=== PATIENT | female | born 1970 | race Caucasian/White ===

== ENCOUNTER 2020-08-03 11:23 | Emergency (ER) | payer MEDICARE, OTHER ==
[~2020-08-03 11:23] MED LIST: AMBIEN10 MG PO; AZITHROMYCIN500 MG PO; BENZONATATE200 MG PO; COMBIVENT RESPIM4 GM INH; CYCLOBENZAPRINE10 MG PO; CYMBALTA60 MG PO; DALIRESP500 MCG PO; DOXYCYCLINE HY100 MG PO; ELAVIL 50 MG TA50 MG PO; ESTRACE0.5 MG PO; FLOMAX0.4 MG PO; IPRAT-ALBUT 0.5-3 ML INH; KLONOPIN0.5 MG PO; MIRALAX510 GM PO; NAPROSYN250 MG PO; PERCOCET 5-3251 EACH PO; PERCOCET 7.5-31 EACH PO; PREDNISONE20 MG PO; TRELEGY ELLIPT1 EACH INH; TYLENOL W/CODEIN1 EA PO; TYLENOL WITH C1 EACH PO; XELJANZ5 MG PO; ZOFRAN ODT 4 MG4 MG SL
[2020-08-03 12:35] LABS: HEMOGLOBIN 11.7 gm/dl (12.3-15.3); RED BLOOD COUNT 4.17 M/UL (4.00-5.10); WHITE BLOOD COUNT 13.4 K/UL (4.5-11.0)
== END 2020-08-03 17:05 | disposition home or self-care (01) ==
LOC: ER1 11:23
PROVIDERS: Physician Assistant
DX: J44.9 Chronic obstructive pulmonary disease, unspecified (principal); F31.9 Bipolar disorder, unspecified; R00.0 Tachycardia, unspecified; F17.290 Nicotine dependence, other tobacco product, uncomplicated; Z88.8 Allergy status to other drugs, medicaments and biological substances; Z79.52 Long term (current) use of systemic steroids; Z20.828 Contact with and (suspected) exposure to other viral communicable diseases
CPT/HCPCS: 71045; 80053; 80307; 81001; 85025; 85379; 87077; 87086; 87186; 94664; 96374; 99285; J2930; U0002

== ENCOUNTER → 2020-08-04 | Outpatient (CLI) | payer MEDICARE, OTHER | LOC: CT 09:30 | DX: J44.9 Chronic obstructive pulmonary disease, unspecified (principal); R00.0 Tachycardia, unspecified; J98.4 Other disorders of lung | CPT/HCPCS: Q9967 ==

== ENCOUNTER → 2020-11-02 | Outpatient (CLI) | payer MEDICARE, OTHER | LOC: KOH-I 14:01 | DX: N20.0 Calculus of kidney (principal); N13.30 Unspecified hydronephrosis | CPT/HCPCS: 74176 ==

== ENCOUNTER 2021-02-03 08:43 | Emergency (ER) | payer MEDICARE, OTHER | END 2021-02-03 12:15 | disposition home or self-care (01) | LOC: ER1 08:43 | DX: M06.9 Rheumatoid arthritis, unspecified (principal); Z79.899 Other long term (current) drug therapy | CPT/HCPCS: 73564; 73630; 99283 ==

== ENCOUNTER → 2021-07-16 | Outpatient (CLI) | payer MEDICARE, OTHER | LOC: EMI 08:37 | DX: G95.9 Disease of spinal cord, unspecified (principal); M50.222 Other cervical disc displacement at C5-C6 level | CPT/HCPCS: 72141 ==

== ENCOUNTER → 2021-08-18 | Outpatient (CLI) | payer MEDICARE, OTHER ==
[2021-08-19 08:13] LABS: A/G RATIO 1.4 (1.2-2.2); BILIRUBIN, TOTAL 0.2 mg/dL (0.0-1.2); CALCIUM, SERUM 9.6 mg/dL (8.7-10.2); CREATININE, SERUM 1.25 mg/dL (0.57-1.00); GLOBULIN, TOTAL 2.9 g/dL (1.5-4.5); POTASSIUM, SERUM 4.4 mmol/L (3.5-5.2)
[2021-08-19 09:13] LABS: CREATININE, URINE 12.8 mg/dL (Not Estab.)
== END ==
LOC: LAB 11:37
PROVIDERS: Internal Medicine Nephrology
DX: N17.9 Acute kidney failure, unspecified (principal)
CPT/HCPCS: 36415; 80053; 81001; 82043; 82570; 84156

== ENCOUNTER 2021-08-29 00:05 | Inpatient (IN) | payer MEDICARE, OTHER ==
[~2021-08-29] VITALS: Ht 162.6 cm; Wt 101.6 kg
[~2021-08-29 00:05] MED LIST changes: +XELJANZ XR PO; -XELJANZ5 MG PO
[2021-08-29 01:23] LABS: HEMOGLOBIN 11.5 gm/dl (12.3-15.3); RED BLOOD COUNT 4.19 M/UL (4.00-5.10); WHITE BLOOD COUNT 7.9 K/UL (4.5-11.0)
[2021-08-29 01:58] LABS: BUN/CREATININE RATIO 15 (0-10)
[2021-08-29] MEDS ORDERED: MACROBID 100 M100 M1 PO ×2 (03:55→04:08)
[2021-08-29] MEDS ORDERED: CLONAZEPAM1 MG PO (11:16)
[2021-08-29] MEDS ORDERED: FOLIC ACID1 MG PO (11:21)
[2021-08-29] MEDS ORDERED: DOCUSATE SODIU100 MG PO (11:21)
[2021-08-29] MEDS ORDERED: LAMOTRIGINE100 MG PO (11:22)
[2021-08-29] MEDS ORDERED: HYDROXYCHLOROQ200 MG PO (11:22)
[2021-08-29] MEDS ORDERED: METHOTREXATE T2.5 MG PO (11:23)
[2021-08-29] MEDS ORDERED: HYDROCODON-ACE1 EAC2 PO (11:24)
[2021-08-30 06:48] LABS: HEMOGLOBIN 11.1 gm/dl (12.3-15.3); RED BLOOD COUNT 4.1 M/UL (4.00-5.10); WHITE BLOOD COUNT 7.5 K/UL (4.5-11.0)
[2021-08-30 07:04] LABS: BUN/CREATININE RATIO 11 (0-10)
[2021-08-31 06:55] LABS: HEMOGLOBIN 11.1 gm/dl (12.3-15.3); RED BLOOD COUNT 4.11 M/UL (4.00-5.10); WHITE BLOOD COUNT 7.6 K/UL (4.5-11.0)
[2021-09-01 05:03] LABS: HEMOGLOBIN 11.3 gm/dl (12.3-15.3); RED BLOOD COUNT 4.18 M/UL (4.00-5.10); WHITE BLOOD COUNT 8.4 K/UL (4.5-11.0)
[2021-09-01] MEDS ORDERED: MEDROL DOSEPAK 24 MG PO (09:56)
[2021-09-01] MEDS ORDERED: CEFUROXIME500 MG PO (09:56)
== END 2021-09-01 12:13 | disposition home or self-care (01) | DRG 871 ==
LOC: ER1 00:05 → CDU 06:31 → MED SURG 4 06:31
PROVIDERS: Emergency Medicine; Internal Medicine; Physician Assistant; ADMIT Family Medicine
PROC: 3E0333Z Introduction of Anti-inflammatory into Peripheral Vein, Percutaneous Approach (ICD-10-PCS; principal; 2021-08-29)
DX: A41.9 Sepsis, unspecified organism (principal); J96.21 Acute and chronic respiratory failure with hypoxia; N39.0 Urinary tract infection, site not specified; Z20.822 Contact with and (suspected) exposure to COVID-19; J44.1 Chronic obstructive pulmonary disease with (acute) exacerbation; J44.0 Chronic obstructive pulmonary disease with (acute) lower respiratory infection; E87.2 Acidosis; N17.9 Acute kidney failure, unspecified; M81.0 Age-related osteoporosis without current pathological fracture; B96.20 Unspecified Escherichia coli [E. coli] as the cause of diseases classified elsewhere; I12.9 Hypertensive chronic kidney disease with stage 1 through stage 4 chronic kidney disease, or unspecified chronic kidney disease; M79.7 Fibromyalgia; F41.9 Anxiety disorder, unspecified; M06.9 Rheumatoid arthritis, unspecified; M19.90 Unspecified osteoarthritis, unspecified site; E11.9 Type 2 diabetes mellitus without complications; N18.30 Chronic kidney disease, stage 3 unspecified; J20.9 Acute bronchitis, unspecified; F32.A Depression, unspecified; F17.210 Nicotine dependence, cigarettes, uncomplicated; Z90.710 Acquired absence of both cervix and uterus; Z98.51 Tubal ligation status; Z88.5 Allergy status to narcotic agent; Z88.6 Allergy status to analgesic agent; Z88.8 Allergy status to other drugs, medicaments and biological substances; Z82.5 Family history of asthma and other chronic lower respiratory diseases; Z99.81 Dependence on supplemental oxygen; Z98.890 Other specified postprocedural states; Z90.49 Acquired absence of other specified parts of digestive tract
CPT/HCPCS: 0240U; 36415; 36600; 71045; 80048; 81001; 82550; 82553; 82803; 83036; 83605; 83735; 83874; 83880; 84484; 85025; 85027; 86140; 87040; 87077; 87086; 87186; 93005; 94640; 94664; 94760; 96374; 96375; 96376; 99285; G0378; J0696; J1100; J2920; J2930; Q9967

== ENCOUNTER → 2021-11-09 | Outpatient (CLI) | payer MEDICARE, OTHER ==
[~2021-11-09] MED LIST changes: +CEFUROXIME500 MG PO; +CLONAZEPAM1 MG PO; +DOCUSATE SODIU100 MG PO; +FOLIC ACID1 MG PO; +HYDROCODON-ACE1 EAC2 PO; +HYDROXYCHLOROQ200 MG PO; +LAMOTRIGINE100 MG PO; +MACROBID 100 M100 M1 PO; +MEDROL DOSEPAK 24 MG PO; +METHOTREXATE T2.5 MG PO
== END ==
LOC: CT 14:05
DX: R10.31 Right lower quadrant pain (principal); N13.30 Unspecified hydronephrosis

== ENCOUNTER 2021-11-25 23:06 | Emergency (ER) | payer MEDICARE, OTHER | END 2021-11-26 01:45 | disposition left against medical advice (07) | LOC: ER1 23:06 | DX: Z53.21 Procedure and treatment not carried out due to patient leaving prior to being seen by health care provider (principal) ==

== ENCOUNTER → 2022-01-19 | Outpatient (CLI) | payer MEDICARE, OTHER | LOC: CT 11:00 | DX: R31.9 Hematuria, unspecified (principal); Z87.442 Personal history of urinary calculi ==

== ENCOUNTER 2022-04-29 08:18 | Emergency (ER) | payer MEDICARE, OTHER ==
[2022-04-29 08:56] LABS: HEMOGLOBIN 12.3 gm/dl (12.3-15.3); RED BLOOD COUNT 4.49 M/UL (4.00-5.10); WHITE BLOOD COUNT 4.9 K/UL (4.5-11.0)
[2022-04-29] MEDS ORDERED: HYDROCODON-ACE1 EAC4 PO (13:23)
== END 2022-04-29 14:30 | disposition home or self-care (01) ==
LOC: ER1 08:18
PROVIDERS: Student in an Organized Health Care Education/Training Program
DX: K83.8 Other specified diseases of biliary tract (principal); M54.6 Pain in thoracic spine; J44.9 Chronic obstructive pulmonary disease, unspecified; M06.9 Rheumatoid arthritis, unspecified; Z88.6 Allergy status to analgesic agent; Z88.8 Allergy status to other drugs, medicaments and biological substances; Z87.891 Personal history of nicotine dependence
CPT/HCPCS: 71045; 80053; 81001; 82550; 82553; 83690; 84484; 85025; 85379; 93005; 96374; 96375; 96376; 99284; J1170; J2270; Q9967